=== PATIENT | female | born 1980 | race Caucasian/White ===

== ENCOUNTER 2016-08-09 00:59 | Emergency (ER) | payer OTHER ==
[2016-08-09] MEDS ORDERED: ONDANSETRON 4 MG/2 ML VIAL IVP STA (01:33)
[2016-08-09] MEDS ORDERED: SODIUM CHLORIDE 0.9% 1,000 ML IV STA (01:33)
[2016-08-09] MEDS ORDERED: HYDROmorphone 1 MG/ML 1 ML SYRINGE IVP STA ×2 (01:33→03:44)
--- NOTE | 2016-08-09 01:41 | ED ---
Abdominal Pain HPI - General Source: patient Mode of arrival: ambulatory Limitations: no limitations, language barrier - History of Present Illness Severity scale (1-10): 0 <Merritt Portillo - Last Filed: 08/09/16 03:52> <Donell Vasquez - Last Filed: 08/25/16 20:05> - General Chief Complaint: Abdominal Pain Stated Complaint: Abd Pain Time Seen by Provider: 08/09/16 01:27 - History of Present Illness Initial Comments: 36-year-old female patient presents to emergency department today for complaints of upper abdominal pain that radiates to her back. Patient states that she does chronically have abdominal pain, but it's been worse over the last 5 days. Patient states that she's been vomiting every day for the last 2 years but it is worse and more frequent, and she is unable to keep down any food or fluids. Patient also reports fevers daily for the last 4 years. Temperatures as high as 105. Patient states she's also had diarrhea for the last 2 days. She denies any urinary urgency, frequency, dysuria, or hematuria. She states she has noted some blood in her vomit. Vomit was examined at bedside no blood present. Patient denies any chest pain, back pain, or shortness of breath. (Merritt Portillo) - Related Data Previous Rx's Medication Instructions Recorded Ciprofloxacin HCl [Cipro] 500 mg PO Q12HR #6 tablet 03/17/14 Famotidine [Pepcid] 20 mg PO BID #30 tablet 03/17/14 Ondansetron Odt [Zofran Odt] 4 mg PO Q6HR PRN #20 tab 03/17/14 Omeprazole [PriLOSEC] 20 mg PO AC-BRKFST #1 cap 03/18/14 Sulfamethox-Tmp 400-80Mg [Bactrim 1 each PO Q12HR #1 tablet 03/18/14 SS 400-80 mg] Allergies Allergy/AdvReac Type Severity Reaction Status Date / Time house dust Allergy Itching Verified 08/09/16 01:06 Iodinated Contrast Media - Allergy Anaphylaxis Verified 08/09/16 01:06 Oral and [Iodinated Contrast Media - IV Dye] Review of Systems ROS Other: All systems not noted in ROS Statement are negative. <Merritt Portillo - Last Filed: 08/09/16 03:52> ROS Other: All systems not noted in ROS Statement are negative. <Donell Vasquez - Last Filed: 08/25/16 20:05> ROS Statement: Those systems with pertinent positive or pertinent negative responses have been documented in the HPI. Past Medical History Past Medical History: GI Bleed, Hypertension Additional Past Medical History / Comment(s): CARPAL TUNNEL History of Any Multi-Drug Resistant Organisms: None Reported Past Surgical History: Section Additional Past Surgical History / Comment(s): WISDOM TEETH EXTRACTION, D&C, 3 SECTIONS Additional Past Anesthesia/Blood Transfusion Reaction / Comment(s): PT STATES TAKES A WHILE TO WAKE UP Past Psychological History: Anxiety, Depression Smoking Status: Current every day smoker Past Alcohol Use History: Occasional Past Drug Use History: Marijuana - Past Family History Mother Additional Family Medical History / Comment(s): LUPUS <Merritt Portillo - Last Filed: 08/09/16 03:52> General Exam Limitations: no limitations, language barrier General appearance: alert, in distress, other (Pt sitting on the floor, rocking back and forth. ) Eye exam: Present: normal appearance, PERRL, EOMI. Absent: scleral icterus, conjunctival injection, periorbital swelling ENT exam: Present: normal exam, normal oropharynx, mucous membranes moist Neck exam: Present: normal inspection. Absent: tenderness, meningismus, lymphadenopathy Respiratory exam: Present: normal lung sounds bilaterally. Absent: respiratory distress, wheezes, rales, rhonchi, stridor Cardiovascular Exam: Present: regular rate, normal rhythm, normal heart sounds. Absent: systolic murmur, diastolic murmur, rubs, gallop, clicks GI/Abdominal exam: Present: soft, tenderness (Exquisite upper abdominal tenderness), normal bowel sounds. Absent: distended, guarding, rebound, rigid, organomegaly, mass, hernia Extremities exam: Present: normal inspection, full ROM, normal capillary refill. Absent: tenderness, pedal edema, joint swelling, calf tenderness Back exam: Present: normal inspection. Absent: CVA tenderness (R), CVA tenderness (L) Neurological exam: Present: alert, oriented X3, CN II-XII intact Psychiatric exam: Present: anxious Skin exam: Present: warm, dry, intact, normal color. 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 (Merritt Portillo) Medical Decision Making - Lab Data Result diagrams: 08/09/16 01:30 08/09/16 01:30 <Merritt Portillo - Last Filed: 08/09/16 03:52> - Lab Data Result diagrams: 08/09/16 01:30 08/09/16 01:30 <Donell Vasquez - Last Filed: 08/25/16 20:05> - Medical Decision Making Dr. Vasquez discuss case with [facility] excepts transfer for vascular surgery (Merritt Portillo) I saw this patient in conjunction with the physician educational/development assistant. I performed independent history and physical exam. Agree with case management. On the exam, agree with the physician educational/development assistant note. I do not hear a murmur, but there is definitely concern of possible vegetation given the patient's history. We did order a dose of vancomycin started stat. The patient does have some mild diffuse tenderness but no rebound or guarding. I discussed case with the vascular surgeon, Dr. Guerrero who states that patient definitely needs higher level of care than available at this facility. I discussed the findings with the patient and family and they requested to be transferred to [facility]. I discussed case with the transfer team at [facility], accepting transfer (Donell Vasquez) - Lab Data Lab Results 08/09/16 08/09/16 08/09/16 Range/Units 01:30 01:30 01:30 WBC 12.0 H (3.8-10.6) k/uL RBC 4.99 (3.80-5.40) m/uL Hgb 17.1 H (11.4-16.0) gm/dL Hct 51.7 H (34.0-46.0) % MCV 103.7 H (80.0-100.0) fL MCH 34.3 (25.0-35.0) pg MCHC 33.1 (31.0-37.0) g/dL RDW 17.9 H (11.5-15.5) % Plt Count 257 (150-450) k/uL Neutrophils % 72 % Lymphocytes % 15 % Monocytes % 5 % Eosinophils % 5 % Basophils % 1 % Neutrophils # 8.7 H (1.3-7.7) k/uL Lymphocytes # 1.8 (1.0-4.8) k/uL Monocytes # 0.6 (0-1.0) k/uL Eosinophils # 0.6 (0-0.7) k/uL Basophils # 0.1 (0-0.2) k/uL Anisocytosis Slight Macrocytosis Moderate Sodium 141 (137-145) mmol/L Potassium 3.9 (3.5-5.1) mmol/L Chloride 105 (98-107) mmol/L Carbon Dioxide 21 L (22-30) mmol/L Anion Gap 15 mmol/L BUN 7 (7-17) mg/dL Creatinine 0.50 L (0.52-1.04) mg/dL Est GFR (MDRD) Af Amer >60 (>60 ml/min/1.73 sqM) Est GFR (MDRD) Non-Af >60 (>60 ml/min/1.73 sqM) Glucose 102 H (74-99) mg/dL Plasma Lactic Acid Mateo 3.5 H* (0.7-2.0) mmol/L Calcium 8.7 (8.4-10.2) mg/dL Total Bilirubin 0.6 (0.2-1.3) mg/dL AST 42 H (14-36) U/L ALT 47 (9-52) U/L Alkaline Phosphatase 129 H (38-126) U/L Total Protein 7.6 (6.3-8.2) g/dL Albumin 3.7 (3.5-5.0) g/dL Amylase 53 (30-110) U/L Lipase 58 (23-300) U/L Urine Color Urine Appearance (Clear) Urine pH (5.0-8.0) Ur Specific [place] (1.001-1.035) Urine Protein (Negative) Urine Glucose (UA) (Negative) Urine Ketones (Negative) Urine Blood (Negative) Urine Nitrite (Negative) Urine Bilirubin (Negative) Urine Urobilinogen (<2.0) mg/dL Ur Leukocyte Esterase (Negative) Urine RBC (0-5) /hpf Urine WBC (0-5) /hpf Ur Squamous Epith Cells (0-4) /hpf Urine Mucus (None) /hpf Urine HCG, Qual (Not Detectd) Urine Opiates Screen (NotDetected) Ur Oxycodone Screen (NotDetected) Urine Methadone Screen (NotDetected) Ur Propoxyphene Screen (NotDetected) Ur Barbiturates Screen (NotDetected) U Tricyclic Antidepress (NotDetected) Ur Phencyclidine Scrn (NotDetected) Ur Amphetamines Screen (NotDetected) U Methamphetamines Scrn (NotDetected) U Benzodiazepines Scrn (NotDetected) Urine Cocaine Screen (NotDetected) U Marijuana (THC) Screen (NotDetected) 08/09/16 08/09/16 Range/Units 03:23 03:23 WBC (3.8-10.6) k/uL RBC (3.80-5.40) m/uL Hgb (11.4-16.0) gm/dL Hct (34.0-46.0) % MCV (80.0-100.0) fL MCH (25.0-35.0) pg MCHC (31.0-37.0) g/dL RDW (11.5-15.5) % Plt Count (150-450) k/uL Neutrophils % % Lymphocytes % % Monocytes % % Eosinophils % % Basophils % % Neutrophils # (1.3-7.7) k/uL Lymphocytes # (1.0-4.8) k/uL Monocytes # (0-1.0) k/uL Eosinophils # (0-0.7) k/uL Basophils # (0-0.2) k/uL Anisocytosis Macrocytosis Sodium (137-145) mmol/L Potassium (3.5-5.1) mmol/L Chloride (98-107) mmol/L Carbon Dioxide (22-30) mmol/L Anion Gap mmol/L BUN (7-17) mg/dL Creatinine (0.52-1.04) mg/dL Est GFR (MDRD) Af Amer (>60 ml/min/1.73 sqM) Est GFR (MDRD) Non-Af (>60 ml/min/1.73 sqM) Glucose (74-99) mg/dL Plasma Lactic Acid Mateo (0.7-2.0) mmol/L Calcium (8.4-10.2) mg/dL Total Bilirubin (0.2-1.3) mg/dL AST (14-36) U/L ALT (9-52) U/L Alkaline Phosphatase (38-126) U/L Total Protein (6.3-8.2) g/dL Albumin (3.5-5.0) g/dL Amylase (30-110) U/L Lipase (23-300) U/L Urine Color Yellow Urine Appearance Clear (Clear) Urine pH 6.5 (5.0-8.0) Ur Specific [place] 1.048 H (1.001-1.035) Urine Protein Trace H (Negative) Urine Glucose (UA) Negative (Negative) Urine Ketones Negative (Negative) Urine Blood Trace H (Negative) Urine Nitrite Negative (Negative) Urine Bilirubin Negative (Negative) Urine Urobilinogen <2.0 (<2.0) mg/dL Ur Leukocyte Esterase Negative (Negative) Urine RBC 2 (0-5) /hpf Urine WBC 1 (0-5) /hpf Ur Squamous Epith Cells 3 (0-4) /hpf Urine Mucus Rare H (None) /hpf Urine HCG, Qual Not Detected (Not Detectd) Urine Opiates Screen Detected H (NotDetected) Ur Oxycodone Screen Not Detected (NotDetected) Urine Methadone Screen Not Detected (NotDetected) Ur Propoxyphene Screen Not Detected (NotDetected) Ur Barbiturates Screen Not Detected (NotDetected) U Tricyclic Antidepress Not Detected (NotDetected) Ur Phencyclidine Scrn Not Detected (NotDetected) Ur Amphetamines Screen Not Detected (NotDetected) U Methamphetamines Scrn Not Detected (NotDetected) U Benzodiazepines Scrn Not Detected (NotDetected) Urine Cocaine Screen Not Detected (NotDetected) U Marijuana (THC) Screen Detected H (NotDetected) 08/09/16 03:37 EKG performed at 3:33 normal sinus rhythm with a rate of 69, ME 134, QRS duration 80, QT/QTC 444/475 (Merritt Portillo) Disposition - Out of Hospital Transfer - Req. Specs Out of Hospital Transfer - Requested Specifics: Other Emergency Center ([facility]) <Merritt Portillo - Last Filed: 08/09/16 03:52> - Out of Hospital Transfer - Req. 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
[2016-08-09 01:49] LABS: Anisocytosis Slight; Basophils # (A) 0.1 k/uL (0-0.2); Basophils % (A) 1 %; CH 33.6; CHCM 32.4; Eosinophils # (A) 0.6 k/uL (0-0.7); Eosinophils % (A) 5 %; HCT 51.7 % (34.0-46.0); HDW 2.66; HGB 17.1 gm/dL (11.4-16.0); Luc # (Auto) 0.21; Luc % (Auto) 2; Lymphocytes # (A) 1.8 k/uL (1.0-4.8); Lymphocytes % (A) 15 %; MCH 34.3 pg (25.0-35.0); MCHC 33.1 g/dL (31.0-37.0); MCV 103.7 fL (80.0-100.0); Macrocytosis Moderate; Monocytes # (A) 0.6 k/uL (0-1.0); Monocytes % (A) 5 %; Neutrophils # (A) 8.7 k/uL (1.3-7.7); Neutrophils % (A) 72 %; RBC 4.99 m/uL (3.80-5.40); RDW 17.9 % (11.5-15.5)
[2016-08-09 02:01] LABS: ALT 47 U/L (9-52); AST 42 U/L (14-36); Alkaline Phosphatase 129 U/L (38-126); Amylase 53 U/L (30-110); Anion Gap 15 mmol/L; Blood Urea Nitrogen 7 mg/dL (7-17); Calcium 8.7 mg/dL (8.4-10.2); Carbon Dioxide 21 mmol/L (22-30); Chloride 105 mmol/L (98-107); Glucose 102 mg/dL (74-99); Non-African American GFR(MDRD) >60 (>60 ml/min/1.73 sqM); Potassium 3.9 mmol/L (3.5-5.1); Sodium 141 mmol/L (137-145); Total Bilirubin 0.6 mg/dL (0.2-1.3); Total Protein 7.6 g/dL (6.3-8.2)
[2016-08-09] MEDS ORDERED: diphenhydrAMINE 50 MG/ML 1 ML VIAL IVP STA (02:02)
[2016-08-09] MEDS ORDERED: FAMOTIDINE 20 MG/2 ML VIAL IV STA (02:02)
[2016-08-09] MEDS ORDERED: methylPREDNISolone SOD SUCCI 125 MG/2 ML VIAL IV STA (02:02)
[2016-08-09] MEDS ORDERED: RX INFO: IV CONTRAST WAS GIVEN 1 EACH MISC MISCELLANE PRN (02:03)
[2016-08-09 02:32] VITALS: RESP 18
[2016-08-09] MEDS ORDERED: SODIUM CHLORIDE 0.9% 1,000 ML IV ONE (02:38)
--- NOTE | 2016-08-09 03:18 | CT ---
EXAM: CT Abdomen and Pelvis With Intravenous Contrast. CLINICAL HISTORY: Severe abd pain all over abd area, [id number]/100ml, no previous, DLP: 509. 20 TECHNIQUE: Axial computed tomography images of the abdomen and pelvis with intravenous contrast. CTDI is 7.00 mGy and DLP is 509.0 mGy-cm This CT exam was performed using one or more of the following dose reduction techniques: automated exposure control, adjustment of the mA and/or kV according to patient size, and/or use of iterative reconstruction technique. Coronal and sagittal reformatted images were created and reviewed. COMPARISON: No relevant prior studies available. FINDINGS: Lower thorax: No acute findings. ABDOMEN: Liver: Diffuse fatty enlarged liver, correlate with LFTs. Gallbladder and bile ducts: Unremarkable. No calcified stones. No ductal dilation. Pancreas: Unremarkable. No mass. No ductal dilation. Spleen: 1.6 cm peripheral splenic low-density lesion. Adrenals: Unremarkable. No mass. Kidneys and ureters: Unremarkable. No solid mass. No hydronephrosis. Stomach and bowel: Diffuse thickening of the colon consistent with colitis. Appendix: Normal appendix. PELVIS: Bladder: Unremarkable. No mass. Reproductive: Uterus and adnexa unremarkable. ABDOMEN and PELVIS: Intraperitoneal space: Unremarkable. No free air. No significant fluid collection. Bones/joints: No acute fracture. No dislocation. Soft tissues: Unremarkable. Vasculature: Thrombus within the SMA, spanning 2.5 cm in length 3.5 cm from origin , with high-grade stenosis. Lymph nodes: Unremarkable. No enlarged lymph nodes. IMPRESSION: 1. Diffuse thickening of the colon consistent with colitis. No bowel obstruction. No free air, free fluid, or abscess. 2. Diffuse fatty enlarged liver, correlate with LFTs. 3. Thrombus within the SMA, spanning 2.5 cm in length 3.5 cm from origin , with high-grade stenosis. [employer] 08/09/16 03:31 Verify Receipt Verified receipt with Safety Counselorkeith Strickland in the ER for PATEL Stearns on 08/09 03:31 (-04:00)
[2016-08-09 03:38] LABS: Appearance,Urine Clear (Clear); Bilirubin,Urine Negative (Negative); Glucose,Urine (UA) Negative (Negative); Ketones,Urine Negative (Negative); Leukocyte Esterase,Urine Negative (Negative); Mucus,Urine Rare /hpf; Nitrite,Urine Negative (Negative); PH, Urine 6.5 (5.0-8.0); Particle Count 3176; Protein,Urine Trace (Negative); RBC,Urine 2 /hpf (0-5); Squamous Epithelial Cell,Urine 3 /hpf (0-4); UA Billing (MACRO vs. MICRO) MICRO; Urobilinogen,Urine <2.0 mg/dL (<2.0); WBC,Urine 1 /hpf (0-5)
[2016-08-09 03:39] LABS: Specific Gravity,Urine 1.048 (1.001-1.035)
[2016-08-09] MEDS ORDERED: PIPERACILLIN-TAZOBACTAM 3.375 GM in DEXTROSE/WATER 1 50ML.BAG IVPB STA (03:43)
[2016-08-09] MEDS ORDERED: IV VANCOMYCIN PER PHARMACY 1 EACH MISC MISCELLANE PRN (03:49)
[2016-08-09 04:00] VITALS: BP 146/103; PULSE 72; TEMP 98
[2016-08-09] MEDS ORDERED: VANCOMYCIN 1,000 MG in SODIUM CHLORIDE 0.9% 250 ML IVPB STA (04:00)
== END 2016-08-09 04:27 | disposition short-term general hospital (02) ==
LOC: EC 00:59
DX: K55.069 Acute infarction of intestine, part and extent unspecified (principal); K52.9 Noninfective gastroenteritis and colitis, unspecified; F19.10 Other psychoactive substance abuse, uncomplicated; F17.200 Nicotine dependence, unspecified, uncomplicated; Z91.09 Other allergy status, other than to drugs and biological substances; Z91.041 Radiographic dye allergy status
CPT/HCPCS: 99285; 96374; 96375 ×4; 96376; 96361 ×2; 36415; 93005; 80053; 82150; 83605; 83690; 85025; 81001; 81025; 87040; 80306; 74177; J3370; J1200; J2930; J2405; J1170; Q9967

== ENCOUNTER 2016-11-05 22:36 | Inpatient (IN) | payer MEDICARE, OTHER ==
[2016-11-06] MEDS ORDERED: HEPARIN SODIUM,PORCINE/D5W PMX 25,000 UNIT/500 ML BAG IV ONE (02:53)
[2016-11-06] MEDS ORDERED: HEPARIN SODIUM,PORCINE 5,000 UNIT/ML 1 ML VIAL ONE (02:53)
[2016-11-06] MEDS ORDERED: POTASSIUM CHLORIDE ER 20 MEQ TAB.ER PO ONE (02:53)
[2016-11-06] MEDS ORDERED: HYDROcodone/APAP 10-325MG 1 EACH TAB ONE (02:53)
[2016-11-06 04:09] VITALS: BMI 21.7
[2016-11-06] MEDS ORDERED: HEPARIN SODIUM,PORCINE 5,000 UNIT/ML 1 ML VIAL IV PRN (04:48)
[2016-11-06] MEDS: MORPHINE SULFATE 4 MG/ML SYRINGE IVP PRN ×3 (05:22→14:21)
[2016-11-06 05:33] LABS: ALT 38 U/L (9-52); AST 23 U/L (14-36); Alkaline Phosphatase 155 U/L (38-126); Anion Gap 15 mmol/L; Anisocytosis Moderate; Basophils # (A) 0.1 k/uL (0-0.2); Basophils % (A) 1 %; Blood Urea Nitrogen 2 mg/dL (7-17); CH 32.7; CHCM 34.2; Calcium 8.7 mg/dL (8.4-10.2); Carbon Dioxide 25 mmol/L (22-30); Chloride 98 mmol/L (98-107); Eosinophils # (A) 0.3 k/uL (0-0.7); Eosinophils % (A) 2 %; Glucose 97 mg/dL (74-99); HCT 38.6 % (34.0-46.0); HDW 2.73; HGB 13.3 gm/dL (11.4-16.0); Luc # (Auto) 0.11; Luc % (Auto) 1; Lymphocytes # (A) 2.3 k/uL (1.0-4.8); Lymphocytes % (A) 16 %; MCH 32.9 pg (25.0-35.0); MCHC 34.4 g/dL (31.0-37.0); MCV 95.7 fL (80.0-100.0); Macrocytosis Moderate; Mean Platelet Volume 7.2; Monocytes # (A) 0.7 k/uL (0-1.0); Monocytes % (A) 5 %; Neutrophils # (A) 10.3 k/uL (1.3-7.7); Neutrophils % (A) 75 %; Non-African American GFR(MDRD) >60 (>60 ml/min/1.73 sqM); RBC 4.03 m/uL (3.80-5.40); RDW 21.7 % (11.5-15.5); Sodium 138 mmol/L (137-145); Total Bilirubin 0.5 mg/dL (0.2-1.3); Total Protein 6.6 g/dL (6.3-8.2); WBC 13.7 k/uL (3.8-10.6); WBC (Perox) 13.22
[2016-11-06 05:34] LABS: Potassium 2.9 mmol/L (3.5-5.1)
[2016-11-06 05:43] LABS: Partial Thromboplastin Time 26.2 sec (22.0-30.0); Prothrombin Time 10.5 sec (9.0-12.0)
[2016-11-06] MEDS: SODIUM CHLORIDE 0.9% 1,000 ML IV SCH (06:17)
[2016-11-06] MEDS: HEPARIN SODIUM,PORCINE/D5W PMX 25,000 UNIT in DEXTROSE/WATER 1 500ML.BAG IV SCH ×2 (06:21→20:40)
--- NOTE | 2016-11-06 08:18 | US ---
EXAMINATION TYPE: US venous doppler duplex LE RT DATE OF EXAM: 11/06/2016 6:44 AM COMPARISON: NONE CLINICAL HISTORY: PAIN. SIDE PERFORMED: Right TECHNIQUE: The lower extremity deep venous system is examined utilizing real time linear array sonog basilio with graded compression, doppler sonography and color-flow sonography. VESSELS IMAGED: External Iliac Vein (EIV) Common Femoral Vein Deep Femoral Vein Greater Saphenous Vein * Femoral Vein Popliteal Vein Small Saphenous Vein * Proximal Calf Veins (* superficial vessels) Right Leg: Extensive hyperechoic material begins in visualized portion of distal external iliac vein extending through common femoral vein into deep and superficial femoral veins with absent color flow and noncompressibility. There is absent color flow and compressibility extending into popliteal vein and right-sided calf veins. IMPRESSION: Long segment acute DVT is present. A preliminary report for this study was provided by [facility].
[2016-11-06] MEDS: NICOTINE 14MG/24HR PATCH TRANSDERM SCH (11:44)
[2016-11-06 12:54] LABS: ALT 24 U/L (9-52); AST 27 U/L (14-36); Alkaline Phosphatase 119 U/L (38-126); Anion Gap 9 mmol/L; Blood Urea Nitrogen 4 mg/dL (7-17); Calcium 7.7 mg/dL (8.4-10.2); Carbon Dioxide 25 mmol/L (22-30); Chloride 96 mmol/L (98-107); Glucose 102 mg/dL (74-99); Magnesium 1.6 mg/dL (1.6-2.3); Non-African American GFR(MDRD) >60 (>60 ml/min/1.73 sqM); Potassium 3.3 mmol/L (3.5-5.1); Sodium 130 mmol/L (137-145); Total Bilirubin 0.6 mg/dL (0.2-1.3); Total Protein 5.7 g/dL (6.3-8.2)
[2016-11-06] MEDS ORDERED: traMADol 50 MG TAB PO PRN (13:00)
[2016-11-06 14:51] LABS: Appearance,Urine Cloudy (Clear); Bacteria,Urine Moderate /hpf; Bilirubin,Urine Negative (Negative); Glucose,Urine (UA) Negative (Negative); Ketones,Urine Negative (Negative); Leukocyte Esterase,Urine Large (Negative); Mucus,Urine Occasional /hpf; Nitrite,Urine Positive (Negative); Particle Count 87016; Protein,Urine 1+ (Negative); Specific Gravity,Urine 1.012 (1.001-1.035); Squamous Epithelial Cell,Urine 1 /hpf (0-4); UA Billing (MACRO vs. MICRO) MICRO; WBC,Urine >182 /hpf (0-5)
[2016-11-06] MEDS ORDERED: Potassium Replacement Protocol 1 EACH MISC MISCELLANE PRN (15:42)
[2016-11-06] MEDS ORDERED: Magnesium Replacement Protocol 1 EACH MISC MISCELLANE PRN (15:43)
--- NOTE | 2016-11-06 15:48 | P.HPIM ---
History of Present Illness H&P Date: 11/06/16 Chief Complaint: leg pain this is a 36 y/o wf pt of Dr Junior. SHe is non compliant and has not taken her coumadin in 3 months. SHe has h/o clotting disorder f/u by Rashid William. She c /o several day increasd right leg pain. She came to the ER and a RLE DVT was found. No information as to the chronicity of this. She indicates she has them in her Left leg.SHe is now admitted for this. Review of Systems All systems: negative Past Medical History Past Medical History: Asthma, Deep Vein Thrombosis (DVT), GI Bleed, Hypertension Additional Past Medical History / Comment(s): CARPAL TUNNEL. CLOTTING DISORDER History of Any Multi-Drug Resistant Organisms: None Reported Past Surgical History: Section Additional Past Surgical History / Comment(s): WISDOM TEETH EXTRACTION, D&C, 3 SECTIONS, TUBES TIED, BLOOD CLOT REMOVED FROM ABDOMEN Additional Past Anesthesia/Blood Transfusion Reaction / Comment(s): PT STATES TAKES A WHILE TO WAKE UP Past Psychological History: Anxiety, Depression, Panic Disorder, PTSD Additional Psychological History / Comment(s): insomnia Smoking Status: Current every day smoker Past Alcohol Use History: Occasional Additional Past Alcohol Use History / Comment(s): in the past few days, she states she has had three shots of liquor per day, but she does not normally drink Past Drug Use History: Opiates Additional Drug Use History / Comment(s): patient states she takes whatever pain pill she can get - Past Family History Mother Additional Family Medical History / Comment(s): LUPUS Medications and Allergies Home Medications Medication Instructions Recorded Confirmed Type No Known Home Medications [No 11/06/16 11/06/16 History Known Home Medications] Allergies Allergy/AdvReac Type Severity Reaction Status Date / Time house dust Allergy Itching Verified 11/06/16 08:57 Iodinated Contrast Media - Allergy Anaphylaxis Verified 11/06/16 08:57 Oral and [Iodinated Contrast Media - IV Dye] Physical Exam Vitals: Vital Signs Temp Pulse Resp BP BP Pulse Ox 11/06/16 14:57 99.2 F 96 20 104/67 98 11/06/16 07:00 98.8 F 103 H 18 106/66 98 11/06/16 04:01 98.5 F 104 H 18 122/69 97 Intake and Output 11/06/16 11/06/16 11/06/16 06:59 14:59 22:59 Intake Total 993.22 Balance 993.22 Intake: Intake, IV Titration 99.22 Amount Heparin Sodium,Porcine/ 99.22 D5w Pmx 25,000 unit In Dextrose/Water 1 500ml. bag @ 22.1 UNITS/KG/HR 27 .06 mls/hr IV .[id number] [facility] Rx#:[id number] Oral 894 Other: Voiding Method Toilet # Voids 0 2 Weight 61.235 kg - Constitutional General appearance: average body habitus - EENT Eyes: EOMI, PERRLA - Neck Neck: no lymphadenopathy, no thyromegaly - Respiratory Respiratory: bilateral: CTA - Cardiovascular Rhythm: regular Heart sounds: normal: S1, S2 Abnormal Heart Sounds: no systolic murmur - Gastrointestinal General gastrointestinal: normal bowel sounds pain to palplation of right leg Results CBC & Chem 7: 11/06/16 01:25 11/06/16 12:02 Labs: Abnormal Lab Results - Last 24 Hours (Table) 11/06/16 11/06/16 11/06/16 Range/Units 01:25 01:25 08:45 WBC 13.7 H (3.8-10.6) k/uL RDW 21.7 H (11.5-15.5) % Neutrophils # 10.3 H (1.3-7.7) k/uL APTT 36.1 H (22.0-30.0) sec Sodium (137-145) mmol/L Potassium 2.9 L* (3.5-5.1) mmol/L Chloride (98-107) mmol/L BUN 2 L (7-17) mg/dL Creatinine 0.40 L (0.52-1.04) mg/dL Glucose (74-99) mg/dL Calcium (8.4-10.2) mg/dL Alkaline Phosphatase 155 H (38-126) U/L Total Protein (6.3-8.2) g/dL Albumin 3.2 L (3.5-5.0) g/dL Urine Appearance (Clear) Urine Protein (Negative) Urine Nitrite (Negative) Ur Leukocyte Esterase (Negative) Urine WBC (0-5) /hpf Urine Bacteria (None) /hpf Urine Mucus (None) /hpf 11/06/16 11/06/16 Range/Units 12:02 13:20 WBC (3.8-10.6) k/uL RDW (11.5-15.5) % Neutrophils # (1.3-7.7) k/uL APTT (22.0-30.0) sec Sodium 130 L (137-145) mmol/L Potassium 3.3 L (3.5-5.1) mmol/L Chloride 96 L (98-107) mmol/L BUN 4 L (7-17) mg/dL Creatinine 0.41 L (0.52-1.04) mg/dL Glucose 102 H (74-99) mg/dL Calcium 7.7 L (8.4-10.2) mg/dL Alkaline Phosphatase (38-126) U/L Total Protein 5.7 L (6.3-8.2) g/dL Albumin 2.4 L (3.5-5.0) g/dL Urine Appearance Cloudy H (Clear) Urine Protein 1+ H (Negative) Urine Nitrite Positive H (Negative) Ur Leukocyte Esterase Large H (Negative) Urine WBC >182 H (0-5) /hpf Urine Bacteria Moderate H (None) /hpf Urine Mucus Occasional H (None) /hpf Venous US: report reviewed Thrombosis Risk Factor Assmnt - DVT/VTE Prophylaxis DVT/VTE Prophylaxis: Pharmacologic Prophylaxis ordered - Choose All That Apply Any of the Below Risk Factors Present?: Yes Each Factor Represents 1 point: Swollen legs (current) Other Risk Factors: Yes Each Risk Factor Represents 3 Points: History of DVT/PE Thrombosis Risk Factor Assessment Total Risk Factor Score: 4 Thrombosis Risk Factor Assessment Level: Moderate Risk Assessment and Plan Plan: DVT RLE: heparin drip, consult hem/onc for a local doc for her, investigate xarelto. other novel anticoagulant unspecified clotting disorder: as above, obtain old records tobaccoism: nicotice patch suspect narcotic abuse/dependence: d/ morphine, tramadol q6hr prn, counseling recommended Biploar suspect I will await on HEm/onc consult and reevaluate her in the next 24hrs.
[2016-11-06] MEDS: MAGNESIUM SULFATE-D5W PMX 1 GM in DEXTROSE/WATER 1 100ML.BAG IVPB SCH ×2 (16:13→17:22)
[2016-11-06] MEDS: POTASSIUM CHLORIDE 10 MEQ, LIDOCAINE 2% INJ 10 MG in SODIUM CHLORIDE 0.9% 100 ML IV SCH ×2 (18:46→19:54)
[2016-11-06] MEDS: traMADol 50 MG TAB PO PRN (18:51)
[2016-11-07] MEDS: SODIUM CHLORIDE 0.9% 1,000 ML IV SCH ×2 (01:19→20:54)
[2016-11-07] MEDS: traMADol 50 MG TAB PO PRN ×2 (01:45→09:15)
[2016-11-07] MEDS ORDERED: RX INFO: IV CONTRAST WAS GIVEN 1 EACH MISC MISCELLANE PRN (08:41)
[2016-11-07 08:46] LABS: Anisocytosis Moderate; Basophils # (A) 0.1 k/uL (0-0.2); Basophils % (A) 1 %; CH 31.4; CHCM 32.1; Eosinophils # (A) 0.4 k/uL (0-0.7); Eosinophils % (A) 4 %; HCT 32.7 % (34.0-46.0); HDW 2.67; HGB 10.9 gm/dL (11.4-16.0); Luc # (Auto) 0.08; Luc % (Auto) 1; Lymphocytes % (A) 18 %; MCH 32.6 pg (25.0-35.0); MCHC 33.3 g/dL (31.0-37.0); MCV 97.9 fL (80.0-100.0); Macrocytosis Moderate; Mean Platelet Volume 7.7; Monocytes # (A) 0.6 k/uL (0-1.0); Monocytes % (A) 5 %; Neutrophils # (A) 7.9 k/uL (1.3-7.7); Neutrophils % (A) 72 %; RBC 3.34 m/uL (3.80-5.40); RDW 21.2 % (11.5-15.5); WBC (Perox) 10.68
[2016-11-07] MEDS: FAMOTIDINE 20 MG TAB PO SCH (09:06)
[2016-11-07] MEDS: NICOTINE 14MG/24HR PATCH TRANSDERM SCH (09:06)
[2016-11-07 09:13] LABS: Anion Gap 7 mmol/L; Blood Urea Nitrogen 3 mg/dL (7-17); Calcium 7.7 mg/dL (8.4-10.2); Carbon Dioxide 25 mmol/L (22-30); Chloride 101 mmol/L (98-107); Glucose 85 mg/dL (74-99); Non-African American GFR(MDRD) >60 (>60 ml/min/1.73 sqM); Potassium 3.7 mmol/L (3.5-5.1); Sodium 133 mmol/L (137-145)
[2016-11-07] MEDS ORDERED: Potassium Replacement Protocol 1 EACH MISC MISCELLANE PRN (10:11)
[2016-11-07] MEDS: POTASSIUM CHLORIDE 10 MEQ, LIDOCAINE 2% INJ 10 MG in SODIUM CHLORIDE 0.9% 100 ML IV SCH ×2 (10:39→12:05)
[2016-11-07] MEDS: HYDROcodone/APAP 7.5-325MG 1 EACH TAB PO PRN ×3 (10:40→23:33)
[2016-11-07] MEDS: RIVAROXABAN 15 MG TAB PO SCH ×2 (10:40→16:41)
--- NOTE | 2016-11-07 11:05 | US ---
EXAMINATION TYPE: US venous doppler duplex LE LT DATE OF EXAM: 11/07/2016 9:44 AM COMPARISON: Right leg 11/06/2016 CLINICAL HISTORY: 36-year-old female h/o DVT. Currently has right leg DVT, assess left leg today, no swelling or pain in left leg SIDE PERFORMED: Left TECHNIQUE: The lower extremity deep venous system is examined utilizing real time linear array sonog basilio with graded compression, doppler sonography and color-flow sonography. FINDINGS: VESSELS IMAGED: External Iliac Vein (EIV) Common Femoral Vein Deep Femoral Vein Greater Saphenous Vein * Femoral Vein Popliteal Vein Small Saphenous Vein * Proximal Calf Veins Posterior tibial veins (* superficial vessels) Left Leg: Appears negative for DVT IMPRESSION: No evidence for DVT within the left lower extremity.
--- NOTE | 2016-11-07 13:35 | P.PN ---
Subjective This 36-year-old white female admitted one day ago for right lower extremity DVT. She has history of unspecified clotting disorder. She been worked up at [facility] and treated for her DVTs. She was placed on Coumadin. She's been noncompliant not taking medications several months. She is admitted placed on heparin with a positive right lower extremity DVT. 11/07/2016: Planing of pain in that the Ultram isn't helping. Hematology is seen her, the doctor dictation is pending. She is scheduled for a left lower extremity ultrasound and a CT chest. Currently she denies any shortness of breath, chest pain, chest pressure. She complains of right leg pain. She also complains of mild abdominal pain, palpitation. Objective - Vital Signs Vital signs: Vital Signs Temp 98.2 F 11/07/16 07:00 Pulse 81 11/07/16 07:00 Resp 16 11/07/16 07:00 BP 99/65 11/07/16 07:00 Pulse Ox 98 11/07/16 07:00 Intake & Output 11/06/16 11/07/16 11/07/16 18:59 06:59 18:59 Intake Total 1229.191 304.403 755.902 Balance 1229.191 304.403 755.902 Intake: Intake, IV Titration 335.191 304.403 397.902 Amount Heparin Sodium,Porcine/ 335.191 104.403 397.902 D5w Pmx 25,000 unit In Dextrose/Water 1 500ml. bag @ 22.1 UNITS/KG/HR 27 .06 mls/hr IV .[id number] OJ Rx#:[id number] Potassium Chloride 10 meq 100 Lidocaine 2% Inj 10 mg In Sodium Chloride 0.9% 100 ml @ 100 mls/hr IV Q1HR OJ Rx#:[id number] cefTRIAXone 1,000 mg In 100 Sodium Chloride 0.9% 50 ml @ 100 mls/hr IVPB ONCE STA Rx#:[id number] Oral 894 358 Other: Voiding Method Toilet Bedside Commode Bedside Commode # Voids 1 0 - Exam General: The patient is awake and alert, in no distress, Neck: The neck is supple, there is no thyromegaly, lymphadenopathy, tenderness or JVD. Cardiovascular: S1S2 is normal, There is a regular rate and rhythm. No murmur, rub or gallop is appreciated. Respiratory: Lungs are clear to auscultation bilaterally, respirations are non -labored, breath sounds are equal. Gastrointestinal: Soft, non-distended, mild tenderness throughout abdomen without masses or organomegaly noted. There is no rebound or guarding present. Bowel sounds are unremarkable. Musculoskeletal: Normal ROM, s, There is no pedal edema. There is no cords were appreciated. Tenderness to palpation of the the right lower extremity. Neurological: CN II-XII intact, there are no obvious motor or sensory deficits. Coordination appears grossly intact. Speech is normal. Skin: Skin is warm and dry and no rashes or lesions are noted. - Labs CBC & Chem 7: 11/07/16 08:02 11/07/16 08:02 Labs: Abnormal Lab Results - Last 24 Hours (Table) 11/06/16 11/06/16 11/07/16 Range/Units 13:20 16:16 08:02 WBC 11.0 H (3.8-10.6) k/uL RBC 3.34 L (3.80-5.40) m/uL Hgb 10.9 L (11.4-16.0) gm/dL Hct 32.7 L (34.0-46.0) % RDW 21.2 H (11.5-15.5) % Neutrophils # 7.9 H (1.3-7.7) k/uL APTT 56.4 H (22.0-30.0) sec Sodium (137-145) mmol/L BUN (7-17) mg/dL Creatinine (0.52-1.04) mg/dL Calcium (8.4-10.2) mg/dL Urine Appearance Cloudy H (Clear) Urine Protein 1+ H (Negative) Urine Nitrite Positive H (Negative) Ur Leukocyte Esterase Large H (Negative) Urine WBC >182 H (0-5) /hpf Urine Bacteria Moderate H (None) /hpf Urine Mucus Occasional H (None) /hpf 11/07/16 11/07/16 Range/Units 08:02 08:02 WBC (3.8-10.6) k/uL RBC (3.80-5.40) m/uL Hgb (11.4-16.0) gm/dL Hct (34.0-46.0) % RDW (11.5-15.5) % Neutrophils # (1.3-7.7) k/uL APTT 67.2 H (22.0-30.0) sec Sodium 133 L (137-145) mmol/L BUN 3 L (7-17) mg/dL Creatinine 0.45 L (0.52-1.04) mg/dL Calcium 7.7 L (8.4-10.2) mg/dL Urine Appearance (Clear) Urine Protein (Negative) Urine Nitrite (Negative) Ur Leukocyte Esterase (Negative) Urine WBC (0-5) /hpf Urine Bacteria (None) /hpf Urine Mucus (None) /hpf Microbiology - Last 24 Hours (Table) 11/06/16 13:20 Urine Culture - Preliminary Urine,Voided Assessment and Plan Plan: DVT RLE: None on the heparin drip no greater than 24 hours, I will start her on Xarelto. We'll await further recommendations from hematology oncology. I don't believe she'll be compliant with Coumadin and with blood draws for PT INR. We' ll investigate coverage for Xarelto, but we should have samples of this or another novel anticoagulant. Compliance was reinforced to her. unspecified clotting disorder: Hematology consultation. tobaccoism: nicotice patch, tobaccoism cessation was discussed with her at length. suspect narcotic abuse/dependence: We'll monitor very closely Lower extremity pain: I will discontinue the tramadol as it is not helping, we will give her [place], 7.5/325, #1 tablet every 6 hours as needed Biploar suspect Noncompliance waiting on hematology commendations n, and the CT chest ordered. Reevaluate in the next 24 hours. Compliance was reinforced to this patient
[2016-11-07] MEDS ORDERED: predniSONE 50 MG TAB PO ONE (19:00)
--- NOTE | 2016-11-07 21:17 | P.CONS ---
History of Present Illness - Reason for Consult Consult date: 11/07/16 RLE DVT - History of Present Illness The patient is a 36-year-old lady with multiple medical issues. She had presented in 08/14, with abdominal pain, nausea and vomiting. 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. She had developed ischemic bowel, and underwent laparotomy with partial bowel resection. She states that she was diagnosed with left lower extremity DVT during that admission. Per the patient, she had a hypercoagulable workup, and was told lead she had a clotting disorder. However she was unable to provide any further details. She was discharged on Coumadin, but states that she did not have any monitoring, as she could not get back to [facility]. She also claims that she was not for how long she had to be on anticoagulation. She stopped taking the medication herself more than a month ago. She came into the emergency room, because of increasing pain as well as swelling in the right lower extremity over the last 1-2 days. As found to have an extensive DVT extending from the right iliac down to the right popliteal vein. She was admitted and started on IV heparin. The consult was placed for further evaluation and recommendations. The patient denied any other history of venous or arterial thrombotic embolism. She stated that her mother, as well as an uncle, and grandmother on her mother's side had a history of clots. Review of Systems Constitutional: Reports malaise Eyes: denies blurred vision, denies pain Ears: deny: decreased hearing, ear discharge, earache, tinnitus Ears, nose, mouth and throat: Denies headache, Denies sore throat Cardiovascular: Denies chest pain, Denies shortness of breath Respiratory: Denies cough Gastrointestinal: Reports as per HPI, Reports abdominal pain Genitourinary: Denies dysuria, Denies hematuria Menstruation: Reports period normal Musculoskeletal: Reports as per HPI, Reports shooting leg pain Integumentary: Denies pruritus, Denies rash Neurological: Denies numbness, Denies weakness Psychiatric: Reports irritability Endocrine: Reports fatigue, Denies weight change Hematologic/Lymphatic: Reports as per HPI, Reports thrombophilia Past Medical History Past Medical History: Asthma, Deep Vein Thrombosis (DVT), GI Bleed, Hypertension Additional Past Medical History / Comment(s): CARPAL TUNNEL. CLOTTING DISORDER History of Any Multi-Drug Resistant Organisms: None Reported Past Surgical History: Section Additional Past Surgical History / Comment(s): WISDOM TEETH EXTRACTION, D&C, 3 SECTIONS, TUBES TIED, BLOOD CLOT REMOVED FROM ABDOMEN Additional Past Anesthesia/Blood Transfusion Reaction / Comm: PT STATES TAKES A WHILE TO WAKE UP Past Psychological History: Anxiety, Depression, Panic Disorder, PTSD Additional Psychological History / Comment(s): insomnia Smoking Status: Current every day smoker Past Alcohol Use History: Occasional Additional Past Alcohol Use History / Comment(s): in the past few days, she states she has had three shots of liquor per day, but she does not normally drink Past Drug Use History: Opiates Additional Drug Use History / Comment(s): patient states she takes whatever pain pill she can get - Past Family History Mother Additional Family Medical History / Comment(s): LUPUS Medications and Allergies Home Medications Medication Instructions Recorded Confirmed Type No Known Home Medications [No 11/06/16 11/06/16 History Known Home Medications] Allergies Allergy/AdvReac Type Severity Reaction Status Date / Time house dust Allergy Itching Verified 11/06/16 08:57 Iodinated Contrast Media - Allergy Anaphylaxis Verified 11/06/16 08:57 Oral and [Iodinated Contrast Media - IV Dye] Physical Exam Vitals: Vital Signs Temp Pulse Resp BP Pulse Ox 11/07/16 15:00 97.1 F L 78 16 96/67 99 11/07/16 07:00 98.2 F 81 16 99/65 98 11/07/16 00:00 20 11/06/16 23:00 98.3 F 88 20 103/72 97 Intake and Output 11/07/16 11/07/16 11/07/16 06:59 14:59 22:59 Intake Total 200 873.902 Balance 200 873.902 Intake: Intake, IV Titration 200 397.902 Amount Heparin Sodium,Porcine/ 397.902 D5w Pmx 25,000 unit In Dextrose/Water 1 500ml. bag @ 22.1 UNITS/KG/HR 27 .06 mls/hr IV .[id number] OJ Rx#:[id number] Potassium Chloride 10 meq 100 Lidocaine 2% Inj 10 mg In Sodium Chloride 0.9% 100 ml @ 100 mls/hr IV Q1HR OJ Rx#:[id number] cefTRIAXone 1,000 mg In 100 Sodium Chloride 0.9% 50 ml @ 100 mls/hr IVPB ONCE STA Rx#:[id number] Oral 476 Other: Voiding Method Bedside Commode Bedside Commode Bedside Commode # Voids 2 2 - Constitutional General appearance: no acute distress - EENT Eyes: EOMI, PERRLA ENT: hearing grossly normal, normal oropharynx - Neck Neck: no lymphadenopathy Thyroid: bilateral: normal size - Respiratory Respiratory: bilateral: CTA - Cardiovascular Rhythm: regular Heart sounds: normal: S1, S2 - Gastrointestinal General gastrointestinal: normal bowel sounds, soft - Integumentary Integumentary: normal - Neurologic Neurologic: CNII-XII intact - Musculoskeletal 2+ edema, right lower extremity, from ankle to groin - Psychiatric Psychiatric: A&O x's 3 Results CBC & Chem 7: 11/07/16 08:02 11/07/16 15:52 Labs: Abnormal Lab Results - Last 24 Hours (Table) 11/07/16 11/07/16 11/07/16 Range/Units 08:02 08:02 08:02 WBC 11.0 H (3.8-10.6) k/uL RBC 3.34 L (3.80-5.40) m/uL Hgb 10.9 L (11.4-16.0) gm/dL Hct 32.7 L (34.0-46.0) % RDW 21.2 H (11.5-15.5) % Neutrophils # 7.9 H (1.3-7.7) k/uL APTT 67.2 H (22.0-30.0) sec Sodium 133 L (137-145) mmol/L BUN 3 L (7-17) mg/dL Creatinine 0.45 L (0.52-1.04) mg/dL Calcium 7.7 L (8.4-10.2) mg/dL Microbiology - Last 24 Hours (Table) 11/06/16 13:20 Urine Culture - Preliminary Urine,Voided Gram Neg Bacilli Venous US: report reviewed Assessment and Plan (1) DVT (deep venous thrombosis) Narrative/Plan: The patient had her first episode of DVT, 3 months ago, which was provoked by her bowel ischemia and surgery. However the patient had presented with an SMA thrombosis, which is apparently unprovoked. The patient stopped taking the Coumadin for more than a month ago and now is presenting with a DVT on the opposite side. Presuming that this is a new event on the other side, this actually occurred about 2 months since her hospitalization. Therefore, it can actually be considered an unprovoked event. Agree with starting the patient on IV heparin. The patient can be transitioned over to Coumadin or one of the newer direct factor inhibitors for outpatient anticoagulation. Given her issues with the follow-up and compliance , Coumadin monitoring can be a problem. Therefore the direct factor inhibitors would be a better choice if they are covered by insurance. Given her history of unprovoked SMA thrombosis, as well as thrombosis in the other leg, there is a reasonable case to be made for prolonged anticoagulation as long as she tolerates treatment well. I discussed a hypercoagulable workup with the patient. She states that she did have testing done at [facility] and was told that she did have a clotting disorder. However she was not able to provide any further information. I will await those records, and review them, before ordering any additional workup to avoid duplication. As my recommendation is prolonged anticoagulation, the results of for hypercoagulable workup are unlikely to affect her management. However that may have implications in the future for her children and other family members. I will check a Doppler of the other extremity, to get a new baseline, as well as a CTA, to rule out occult PE. The studies are to get a baseline, and a positive or negative result would not affect her management Status: Acute (2) Anemia Narrative/Plan: The patient has a mild anemia with hemoglobin in the 10-11 range. In her age group, the most common causes menstrual losses. I will check an anemia workup. Status: Acute
[2016-11-08] MEDS ORDERED: predniSONE 50 MG TAB PO ONE ×2 (01:00→07:00)
[2016-11-08] MEDS: HYDROcodone/APAP 7.5-325MG 1 EACH TAB PO PRN ×2 (06:51→13:35)
[2016-11-08] MEDS ORDERED: diphenhydrAMINE 50 MG CAP PO ONE (07:00)
[2016-11-08] MEDS: FAMOTIDINE 20 MG TAB PO SCH (08:45)
[2016-11-08] MEDS: NICOTINE 14MG/24HR PATCH TRANSDERM SCH (08:46)
[2016-11-08] MEDS: RIVAROXABAN 15 MG TAB PO SCH (08:46)
[2016-11-08 08:50] LABS: Anisocytosis Moderate; Basophils % (A) 0 %; CH 31.5; CHCM 32.7; Eosinophils % (A) 0 %; HCT 33.1 % (34.0-46.0); HDW 2.66; HGB 11.1 gm/dL (11.4-16.0); Luc # (Auto) 0.04; Luc % (Auto) 0; Lymphocytes # (A) 0.5 k/uL (1.0-4.8); Lymphocytes % (A) 4 %; MCH 32.4 pg (25.0-35.0); MCHC 33.6 g/dL (31.0-37.0); MCV 96.5 fL (80.0-100.0); Macrocytosis Moderate; Mean Platelet Volume 7.1; Monocytes # (A) 0.3 k/uL (0-1.0); Monocytes % (A) 3 %; Neutrophils # (A) 11.3 k/uL (1.3-7.7); Neutrophils % (A) 92 %; RBC 3.43 m/uL (3.80-5.40); RDW 20.9 % (11.5-15.5); WBC 12.3 k/uL (3.8-10.6); WBC (Perox) 12.08
[2016-11-08 09:00] LABS: Reticulocyte % 3.1 % (0.5-2.0)
--- NOTE | 2016-11-08 09:21 | CT ---
EXAMINATION TYPE: CT angio chest DATE OF EXAM: 11/08/2016 COMPARISON: CT abdomen pelvis 08/09/2016 HISTORY: Rt leg DVT CT DLP: 164.6 mGycm Automated exposure control for dose reduction was used. CONTRAST: CTA scan of the thorax is performed with IV Contrast, patient injected with 67 mL of Omnipaque 350, p ulmonary embolism protocol. MIP images are created and reviewed. 3D reconstructed images are create d on an independent workstation and reviewed. FINDINGS: LUNGS: Paraseptal emphysematous changes are present. No evident lung mass. Centrilobular emphysema al so present at the upper lobes which is mild. Cavitary foci present in the right upper lobe laterally with extensions to the pleura, there is local pleural thickening, approximately 4 cavitary foci are p resent, largest measuring 15 mm some wall thickening present. Probable basilar atelectatic changes on the right, there is a small right pleural effusion. AORTA: Eccentric plaque present in the descending aorta similar to prior CT. MEDIASTINUM: Bilateral pulmonary emboli are present, segmental branches to the lower lobes as well as right middle lobe and left upper lobe show filling defects. Central pulmonary embolus present in the right pulmonary artery and left pulmonary artery peripherally. OTHER: Findings of fatty infiltration of the liver again noted. The previously identified embolus in the superior mesenteric artery is not included on the exam. IMPRESSION: BILATERAL PULMONARY EMBOLI COMPATIBLE WITH PATIENT'S HISTORY. SMALL RIGHT PLEURAL EFFUSION.
[2016-11-08 12:23] LABS: Anion Gap 9 mmol/L; Blood Urea Nitrogen 5 mg/dL (7-17); Calcium 8.7 mg/dL (8.4-10.2); Carbon Dioxide 22 mmol/L (22-30); Chloride 105 mmol/L (98-107); Glucose 137 mg/dL (74-99); Iron 21 ug/dL (37-170); Non-African American GFR(MDRD) >60 (>60 ml/min/1.73 sqM); Potassium 4.5 mmol/L (3.5-5.1); Sodium 136 mmol/L (137-145)
[2016-11-08 12:39] LABS: Total Iron Binding Capacity 209 ug/dL (265-497)
[2016-11-08 13:10] LABS: Vitamin B12 462 pg/mL (239-931)
[2016-11-08 14:54] VITALS: BP 100/62; PULSE 83; RESP 16; TEMP 96.9
--- NOTE | 2016-11-08 15:06 | P.DS ---
Providers Date of admission: 11/06/16 01:38 Expected date of discharge: 11/08/16 Attending physician: Hermann Junior Consults: 11/06/16 10:26 Consult Physician Routine Consulting Provider: Joshua Montgomery Consult Reason/Comments: clotting disorder Do you want consulting provider notified?: Yes Primary care physician: [facility] Course: This 36-year-old white female admitted one day ago for right lower extremity DVT. She has history of unspecified clotting disorder. She been worked up at [facility] and treated for her DVTs. She was placed on Coumadin. She's been noncompliant not taking medications several months. She is admitted placed on heparin with a positive right lower extremity DVT. 11/07/2016: Planing of pain in that the Ultram isn't helping. Hematology is seen her, the doctor dictation is pending. She is scheduled for a left lower extremity ultrasound and a CT chest. Currently she denies any shortness of breath, chest pain, chest pressure. She complains of right leg pain. She also complains of mild abdominal pain, palpitation. 11/08 she was + for multiple PE, no DVT LLE. She was stable and pain was controlled. She was cleared by hemo/onc Final DX DVT RLE unspecified clotting disorder h/o SMA clot tobaccoism suspect narcotic abuse/dependence: We'll monitor very closely, norco #30 for pain Lower extremity pain Plan - Discharge Summary New Discharge Prescriptions: New Famotidine [Pepcid] 20 mg PO DAILY #60 tab HYDROcodone/APAP 7.5-325MG [[place] 7.5-325] 1 each PO Q6H PRN #30 tab PRN Reason: Pain Nicotine 14Mg/24Hr Patch [Habitrol] 1 patch TRANSDERM DAILY #14 patch Rivaroxaban [Xarelto] 15 mg PO BID-W/MEALS #60 tab Discharge Medication List Famotidine [Pepcid] 20 mg PO DAILY #60 tab 11/08/16 [Rx] HYDROcodone/APAP 7.5-325MG [[place] 7.5-325] 1 each PO Q6H PRN #30 tab 11/08/16 [ Rx] Nicotine 14Mg/24Hr Patch [Habitrol] 1 patch TRANSDERM DAILY #14 patch 11/08/16 [ Rx] Rivaroxaban [Xarelto] 15 mg PO BID-W/MEALS #60 tab 11/08/16 [Rx] Follow up Appointment(s)/Referral(s): Hermann Junior Jr, [Primary Care Provider] - 3 Days Discharge Disposition: HOME SELF-CARE
[2016-11-10 01:28] LABS: Methylmalonic Acid 0.18 umol/L (<0.40)
== END 2016-11-08 16:57 | disposition home or self-care (01) | DRG 300 ==
LOC: EC 22:36 → 4MS4W 11-06 01:38
PROVIDERS: ADMIT Family Medicine; ATTEND Family Medicine
DX: I82.421 Acute embolism and thrombosis of right iliac vein (principal); D68.9 Coagulation defect, unspecified; I10 Essential (primary) hypertension; F32.9 Major depressive disorder, single episode, unspecified; E87.6 Hypokalemia; D64.9 Anemia, unspecified; J45.909 Unspecified asthma, uncomplicated; G47.00 Insomnia, unspecified; F43.10 Post-traumatic stress disorder, unspecified; F41.0 Panic disorder [episodic paroxysmal anxiety]; Z86.718 Personal history of other venous thrombosis and embolism; F17.200 Nicotine dependence, unspecified, uncomplicated; Z91.19 Patient's noncompliance with other medical treatment and regimen; Z88.9 Allergy status to unspecified drugs, medicaments and biological substances; Z91.041 Radiographic dye allergy status
CPT/HCPCS: 71275; 80048; 80053; 81001; 82607; 82728; 82747; 83540; 83550; 83735; 83921; 84132; 85025; 85045; 85610; 85730; 87077; 87086; 87186

== ENCOUNTER 2016-12-19 11:55 | Emergency (ER) | payer MEDICARE, OTHER ==
[2016-12-19] MEDS ORDERED: MORPHINE SULFATE 4 MG/ML SYRINGE IV STA (12:38)
[2016-12-19] MEDS ORDERED: SODIUM CHLORIDE 0.9% 1,000 ML IV STA (12:38)
[2016-12-19 13:07] LABS: Anisocytosis Moderate; Basophils % (A) 1 %; CH 33.2; Eosinophils # (A) 0.2 k/uL (0-0.7); Eosinophils % (A) 4 %; HCT 39.4 % (34.0-46.0); HGB 13.3 gm/dL (11.4-16.0); Luc # (Auto) 0.04; Luc % (Auto) 1; Lymphocytes # (A) 1.3 k/uL (1.0-4.8); Lymphocytes % (A) 28 %; MCHC 33.7 g/dL (31.0-37.0); MCV 100.8 fL (80.0-100.0); Macrocytosis Moderate; Mean Platelet Volume 7.2; Monocytes # (A) 0.1 k/uL (0-1.0); Monocytes % (A) 2 %; Neutrophils # (A) 2.9 k/uL (1.3-7.7); Neutrophils % (A) 64 %; RBC 3.91 m/uL (3.80-5.40); RDW 20.9 % (11.5-15.5); WBC 4.5 k/uL (3.8-10.6); WBC (Perox) 4.52
[2016-12-19 13:09] LABS: ALT 41 U/L (9-52); AST 40 U/L (14-36); Alkaline Phosphatase 128 U/L (38-126); Amylase 48 U/L (30-110); Anion Gap 16 mmol/L; Blood Urea Nitrogen 4 mg/dL (7-17); Calcium 8.7 mg/dL (8.4-10.2); Carbon Dioxide 23 mmol/L (22-30); Chloride 105 mmol/L (98-107); Glucose 80 mg/dL (74-99); Magnesium 1.6 mg/dL (1.6-2.3); Non-African American GFR(MDRD) >60 (>60 ml/min/1.73 sqM); Potassium 3.2 mmol/L (3.5-5.1); Sodium 144 mmol/L (137-145); Total Bilirubin 0.8 mg/dL (0.2-1.3)
--- NOTE | 2016-12-19 13:09 | ED ---
Abdominal Pain HPI - General Chief Complaint: Abdominal Pain Stated Complaint: chest and abdominal pain Time Seen by Provider: 12/19/16 12:22 Source: patient, RN notes reviewed, old records reviewed Mode of arrival: ambulatory Limitations: no limitations - History of Present Illness Initial Comments: This is a 36-year-old male presents emergency Department chief complaint of shortness of breath, chest pain and abdominal pain for the past 3 days she has history of Right sided PE, IV drug use, DVT. 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 Patient reports that she is on Xarelto has been taking faithfully. Patient states that over the past 3 days she's had some fevers and chills. She states it feels just like a dull ache in her chest. Patient reports that her abdominal pain seems to come and go. She states she's had normal bowel movements, denies any diarrhea. - Related Data Home Medications Medication Instructions Recorded Confirmed Rivaroxaban [Xarelto] 15 mg PO BID 12/19/16 12/19/16 Previous Rx's Medication Instructions Recorded Famotidine [Pepcid] 20 mg PO DAILY #60 tab 11/08/16 Acetaminophen-Codeine 300-30mg 1 tab PO Q4H PRN #12 tablet 12/19/16 [Tylenol #3] Ciprofloxacin HCl [Cipro] 500 mg PO Q12HR 10 Days 12/19/16 metroNIDAZOLE [Flagyl] 500 mg PO QID 10 Days 12/19/16 Allergies Allergy/AdvReac Type Severity Reaction Status Date / Time house dust Allergy Itching Verified 12/19/16 14:33 Iodinated Contrast- Oral and Allergy Anaphylaxis Verified 12/19/16 14:33 IV Dye [Iodinated Contrast Media - IV Dye] Review of Systems ROS Statement: Those systems with pertinent positive or pertinent negative responses have been documented in the HPI. ROS Other: All systems not noted in ROS Statement are negative. Past Medical History Past Medical History: Asthma, Deep Vein Thrombosis (DVT), GI Bleed, Hypertension Additional Past Medical History / Comment(s): CARPAL TUNNEL. CLOTTING DISORDER History of Any Multi-Drug Resistant Organisms: None Reported Past Surgical History: Section Additional Past Surgical History / Comment(s): WISDOM TEETH EXTRACTION, D&C, 3 SECTIONS, TUBES TIED, BLOOD CLOT REMOVED FROM ABDOMEN Additional Past Anesthesia/Blood Transfusion Reaction / Comment(s): PT STATES TAKES A WHILE TO WAKE UP Past Psychological History: Anxiety, Depression, Panic Disorder, PTSD Smoking Status: Current every day smoker Past Alcohol Use History: Occasional Past Drug Use History: Opiates - Past Family History Mother Additional Family Medical History / Comment(s): LUPUS General Exam - General Exam Comments Initial Comments: Physical is a 36-year-old female, patient appears to be short of breath. Limitations: no limitations General appearance: alert, in no apparent distress Head exam: Present: atraumatic, normocephalic, normal inspection Eye exam: Present: normal appearance, PERRL, EOMI. Absent: scleral icterus, conjunctival injection, periorbital swelling ENT exam: Present: normal exam, mucous membranes moist Neck exam: Present: normal inspection. Absent: tenderness, meningismus, lymphadenopathy Respiratory exam: Present: normal lung sounds bilaterally. Absent: respiratory distress, wheezes, rales, rhonchi, stridor Cardiovascular Exam: Present: regular rate, normal rhythm, normal heart sounds. Absent: systolic murmur, diastolic murmur, rubs, gallop, clicks GI/Abdominal exam: Present: soft, tenderness (Diffuse abdominal tenderness.), normal bowel sounds. Absent: distended, guarding, rebound, rigid Extremities exam: Present: normal inspection, full ROM, normal capillary refill. Absent: tenderness, pedal edema, joint swelling, calf tenderness Back exam: Present: normal inspection Neurological exam: Present: alert, oriented X3, CN II-XII intact Psychiatric exam: Present: normal affect, normal mood Skin exam: Present: warm, dry, intact, normal color. Absent: rash Course Vital Signs 12/19/16 12/19/16 12:15 15:13 Temperature 99.2 F Pulse Rate 95 86 Respiratory 17 18 Rate Blood Pressure 134/90 138/86 O2 Sat by Pulse 100 100 Oximetry Medical Decision Making - Medical Decision Making Is a 36-year-old female with multiple comorbidities including clotting disorder. She is on several toe currently and has been taking it regularly. Patient arrived emergency department short of breath, complaining of chest pain and abdominal pain for 3 days. Patient's EKG was reviewed and normal. Cardiac enzymes are also normal. Chest x-ray showed evidence of right lower lung scarring which appears to be chronic. Given patient's significant medical history and surgical history where a SMA thrombus was removed, CT abdomen and pelvis and chest was ordered. Patient did have an elevated d-dimer. CT of the chest showed evidence of no acute thrombus, but a chronic right lower lung arterial thrombus which is not totally occluding. Patient CT abdomen showed evidence of colitis. Discussed with Dr. Esteban. - Lab Data Result diagrams: 12/19/16 12:44 12/19/16 12:44 Lab Results 12/19/16 12/19/16 12/19/16 Range/Units 12:44 12:44 12:44 WBC (3.8-10.6) k/uL RBC (3.80-5.40) m/uL Hgb (11.4-16.0) gm/dL Hct (34.0-46.0) % MCV (80.0-100.0) fL MCH (25.0-35.0) pg MCHC (31.0-37.0) g/dL RDW (11.5-15.5) % Plt Count (150-450) k/uL Neutrophils % % Lymphocytes % % Monocytes % % Eosinophils % % Basophils % % Neutrophils # (1.3-7.7) k/uL Lymphocytes # (1.0-4.8) k/uL Monocytes # (0-1.0) k/uL Eosinophils # (0-0.7) k/uL Basophils # (0-0.2) k/uL Anisocytosis Macrocytosis PT 14.7 H (9.0-12.0) sec INR 1.5 H (<1.2) APTT 35.4 H (22.0-30.0) sec D-Dimer 1.03 H (<0.60) mg/L FEU Sodium 144 (137-145) mmol/L Potassium 3.2 L (3.5-5.1) mmol/L Chloride 105 (98-107) mmol/L Carbon Dioxide 23 (22-30) mmol/L Anion Gap 16 mmol/L BUN 4 L (7-17) mg/dL Creatinine 0.60 (0.52-1.04) mg/dL Est GFR (MDRD) Af Amer >60 (>60 ml/min/1.73 sqM) Est GFR (MDRD) Non-Af >60 (>60 ml/min/1.73 sqM) Glucose 80 (74-99) mg/dL Plasma Lactic Acid Mateo 1.8 (0.7-2.0) mmol/L Calcium 8.7 (8.4-10.2) mg/dL Magnesium 1.6 (1.6-2.3) mg/dL Total Bilirubin 0.8 (0.2-1.3) mg/dL AST 40 H (14-36) U/L ALT 41 (9-52) U/L Alkaline Phosphatase 128 H (38-126) U/L Total Creatine Kinase (30-135) U/L CK-MB (CK-2) (0.0-2.4) ng/mL CK-MB (CK-2) Rel Index Troponin I (0.000-0.034) ng/mL NT-Pro-B Natriuret Pep pg/mL Total Protein 7.0 (6.3-8.2) g/dL Albumin 3.7 (3.5-5.0) g/dL Amylase 48 (30-110) U/L Lipase 112 (23-300) U/L Stool Occult Blood (Negative) 12/19/16 12/19/16 12/19/16 Range/Units 12:44 12:44 12:44 WBC 4.5 (3.8-10.6) k/uL RBC 3.91 (3.80-5.40) m/uL Hgb 13.3 (11.4-16.0) gm/dL Hct 39.4 (34.0-46.0) % MCV 100.8 H (80.0-100.0) fL MCH 34.0 (25.0-35.0) pg MCHC 33.7 (31.0-37.0) g/dL RDW 20.9 H (11.5-15.5) % Plt Count 230 (150-450) k/uL Neutrophils % 64 % Lymphocytes % 28 % Monocytes % 2 % Eosinophils % 4 % Basophils % 1 % Neutrophils # 2.9 (1.3-7.7) k/uL Lymphocytes # 1.3 (1.0-4.8) k/uL Monocytes # 0.1 (0-1.0) k/uL Eosinophils # 0.2 (0-0.7) k/uL Basophils # 0.0 (0-0.2) k/uL Anisocytosis Moderate Macrocytosis Moderate PT (9.0-12.0) sec INR (<1.2) APTT (22.0-30.0) sec D-Dimer (<0.60) mg/L FEU Sodium (137-145) mmol/L Potassium (3.5-5.1) mmol/L Chloride (98-107) mmol/L Carbon Dioxide (22-30) mmol/L Anion Gap mmol/L BUN (7-17) mg/dL Creatinine (0.52-1.04) mg/dL Est GFR (MDRD) Af Amer (>60 ml/min/1.73 sqM) Est GFR (MDRD) Non-Af (>60 ml/min/1.73 sqM) Glucose (74-99) mg/dL Plasma Lactic Acid Mateo (0.7-2.0) mmol/L Calcium (8.4-10.2) mg/dL Magnesium (1.6-2.3) mg/dL Total Bilirubin (0.2-1.3) mg/dL AST (14-36) U/L ALT (9-52) U/L Alkaline Phosphatase (38-126) U/L Total Creatine Kinase 22 L (30-135) U/L CK-MB (CK-2) <0.2 (0.0-2.4) ng/mL CK-MB (CK-2) Rel Index Troponin I <0.012 (0.000-0.034) ng/mL NT-Pro-B Natriuret Pep 25 pg/mL Total Protein (6.3-8.2) g/dL Albumin (3.5-5.0) g/dL Amylase (30-110) U/L Lipase (23-300) U/L Stool Occult Blood (Negative) 12/19/16 Range/Units 16:02 WBC (3.8-10.6) k/uL RBC (3.80-5.40) m/uL Hgb (11.4-16.0) gm/dL Hct (34.0-46.0) % MCV (80.0-100.0) fL MCH (25.0-35.0) pg MCHC (31.0-37.0) g/dL RDW (11.5-15.5) % Plt Count (150-450) k/uL Neutrophils % % Lymphocytes % % Monocytes % % Eosinophils % % Basophils % % Neutrophils # (1.3-7.7) k/uL Lymphocytes # (1.0-4.8) k/uL Monocytes # (0-1.0) k/uL Eosinophils # (0-0.7) k/uL Basophils # (0-0.2) k/uL Anisocytosis Macrocytosis PT (9.0-12.0) sec INR (<1.2) APTT (22.0-30.0) sec D-Dimer (<0.60) mg/L FEU Sodium (137-145) mmol/L Potassium (3.5-5.1) mmol/L Chloride (98-107) mmol/L Carbon Dioxide (22-30) mmol/L Anion Gap mmol/L BUN (7-17) mg/dL Creatinine (0.52-1.04) mg/dL Est GFR (MDRD) Af Amer (>60 ml/min/1.73 sqM) Est GFR (MDRD) Non-Af (>60 ml/min/1.73 sqM) Glucose (74-99) mg/dL Plasma Lactic Acid Mateo (0.7-2.0) mmol/L Calcium (8.4-10.2) mg/dL Magnesium (1.6-2.3) mg/dL Total Bilirubin (0.2-1.3) mg/dL AST (14-36) U/L ALT (9-52) U/L Alkaline Phosphatase (38-126) U/L Total Creatine Kinase (30-135) U/L CK-MB (CK-2) (0.0-2.4) ng/mL CK-MB (CK-2) Rel Index Troponin I (0.000-0.034) ng/mL NT-Pro-B Natriuret Pep pg/mL Total Protein (6.3-8.2) g/dL Albumin (3.5-5.0) g/dL Amylase (30-110) U/L Lipase (23-300) U/L Stool Occult Blood Positive H (Negative) 12/19/16 14:02 EKG shows sinus tachycardia. Possible left atrial enlargement. Ventricularly of 102 bpm. MT interval 122 ms. QRS duration 80 ms. QT QTC 378/4 and 90 ms. Noelevation or T-wave inversion. No evidence of atrial or intraventricular arrhythmia. - Radiology Data Radiology results: report reviewed Suspected scarring of right midlung. Follow-up chest x-ray 3 months is recommended. Disposition Clinical Impression: Colitis, Chronic pulmonary embolism Disposition: HOME SELF-CARE Condition: Good Instructions: Colitis (ED) Additional Instructions: Advised to rest, increase fluids. Follow-up with Dr. Evelyn Smith tomorrow morning. Return to the emergency department if any alarming signs or symptoms occur. Prescriptions: Acetaminophen-Codeine 300-30mg [Tylenol #3] 1 tab PO Q4H PRN #12 tablet PRN Reason: Pain Ciprofloxacin HCl [Cipro] 500 mg PO Q12HR 10 Days metroNIDAZOLE [Flagyl] 500 mg PO QID 10 Days Referrals: Hermann Junior Jr, DO [Primary Care Provider] - 1-2 days Time of Disposition: 16:21
[2016-12-19 13:13] LABS: INR 1.5 (<1.2); Partial Thromboplastin Time 35.4 sec (22.0-30.0); Prothrombin Time 14.7 sec (9.0-12.0)
[2016-12-19 13:18] LABS: Creatine Kinase 22 U/L (30-135)
--- NOTE | 2016-12-19 13:22 | XR ---
EXAMINATION TYPE: XR chest 2V DATE OF EXAM: 12/19/2016 COMPARISON: 11/08/2016 CTA chest INDICATION: Chest pain, history of PE TECHNIQUE: Frontal and lateral views of the chest are obtained. FINDINGS: The heart size is normal. The pulmonary vasculature is normal. The lungs are clear. May be some minimal scarring within the mid to upper right peripheral lung fiel d. This may correlate with the findings on the CTA. Follow-ups chest x-ray in 3 months is recommended . IMPRESSION: 1. Suspected scarring right midlung. Follow-up chest x-ray 3 months is recommended.
[2016-12-19 13:31] LABS: Creatine Kinase MB <0.2 ng/mL (0.0-2.4); Troponin I <0.012 ng/mL (0.000-0.034)
[2016-12-19] MEDS ORDERED: diphenhydrAMINE 50 MG/ML 1 ML VIAL IVP STA (13:53)
[2016-12-19] MEDS ORDERED: RX INFO: IV CONTRAST WAS GIVEN 1 EACH MISC MISCELLANE PRN (13:53)
[2016-12-19] MEDS ORDERED: FAMOTIDINE 20 MG/2 ML VIAL IV STA (13:53)
[2016-12-19] MEDS ORDERED: methylPREDNISolone SOD SUCCI 125 MG/2 ML VIAL IV STA (13:53)
[2016-12-19] MEDS ORDERED: SODIUM CHLORIDE 0.9% 1,000 ML IV ONE (15:09)
--- NOTE | 2016-12-19 15:30 | CT ---
CT CHEST FOR PULMONARY EMBOLISM. EXAMINATION TYPE: CT chest angio for PE DATE OF EXAM: 12/19/2016 INDICATION: Chest and Abdominal pain with known DVTs. CT DLP: 189.7 mGycm, Automated exposure control for dose reduction was used. CONTRAST: Patient injected with 100 mL of Omnipaque 350. COMPARISON: NONE TECHNIQUE: CT of the chest is performed on a spiral scan at 2 mm thick sections. Study is performed with intravenous contrast timed for evaluation for pulmonary embolism. This will limit additional po rtions of the evaluation. 3-D MIP images reconstructed by the technologist are reviewed on the compu ter in the coronal and sagittal planes. FINDINGS: There is a partial filling defect extending through the right main pulmonary artery to the right lowe r lobe pulmonary artery. Contrast passes beyond this area appears may be chronic thrombus. Acute obst ructing thrombus is not identified. Small amount of thrombus is identified in the left main pulmonary artery between the lingula and lower lobe without complete obstruction. No mediastinal or hilar adenopathy enlarged by CT criteria is evident. The ascending aorta diameter at the level of the main pulmonary artery is 3.8 cm. The main pulmonary artery diameter at the bifur cation is 2.9 cm. Scarring is at the apices There is an infiltrate within the right peripheral lung. Pneumatocele is present. Some mild parasepta l emphysematous changes are in the posterior lateral right lung base. Limited CT sections are obtained through the upper abdomen which are unremarkable. IMPRESSIONS: 1. Nonobstructing thrombus within the left distal main and right main to right lower lobe pulmonary a rtery is present. These may be chronic. Report was called to the emergency room PA by Dr. Augustine by telephone at the time of interpretation.
--- NOTE | 2016-12-19 15:35 | CT ---
EXAMINATION TYPE: CT abdomen pelvis w con DATE OF EXAM: 12/19/2016 COMPARISON: 08/09/2016 INDICATION: Chest and Abdominal pain with known DVTs. DLP: 1409.3 mGycm, Automated exposure control for dose reduction was used. CONTRAST: 100 mL of Omnipaque 350. Study performed without Oral Contrast TECHNIQUE: Axial images were obtained from above the diaphragm to the pubic rami in the axial plane a t 5 mm thick sections. Reconstructed images are reviewed on the computer in the coronal plane. FINDINGS: Limited CT sections are obtained the lung bases. The lung bases are clear. CT ABDOMEN: Liver: There is moderate fatty infiltration to the liver. Spleen: Normal Pancreas: Normal Adrenal glands: The adrenal glands are normal. Gallbladder: Normal Kidneys: No masses are evident. No hydronephrosis is present. No cysts are present. Delayed images were obtained through the kidneys, which remain unremarkable. Aorta: Vascular calcification is within the aorta. Inferior vena cava: Normal. CT PELVIS: There is thickening of the ascending colon wall. This extends to the proximal descending colon. Corre late for colitis. Inflammatory changes are not adjacent. Loops of bowel are nondistended with oral co ntrast limiting their evaluation. Appendix: Normal as visualized. Urinary bladder: Normal. Genitourinary structures: Uterus and adnexal regions appear within normal limits. Osseous structures: No suspicious lytic or sclerotic lesions. IMPRESSIONS: 1. Thickened ascending and transverse colon wall suspicious for colitis. Clinical correlation is rec ommended. 2. Findings appear similar to 08/09/2016, recurrent colitis should be suspected.
[2016-12-19] MEDS ORDERED: MORPHINE SULFATE 4 MG/ML SYRINGE IVP STA (15:49)
[2016-12-19] MEDS ORDERED: metroNIDAZOLE 500 MG TAB PO STA (16:20)
[2016-12-19] MEDS ORDERED: CIPROFLOXACIN HCL 500 MG TAB PO STA (16:20)
[2016-12-19 16:49] VITALS: BP 142/89; PULSE 90; RESP 20; TEMP 97.8
== END 2016-12-19 16:45 | disposition home or self-care (01) ==
LOC: EC 11:55
DX: K52.9 Noninfective gastroenteritis and colitis, unspecified (principal); I27.82 Chronic pulmonary embolism; R07.9 Chest pain, unspecified; F17.200 Nicotine dependence, unspecified, uncomplicated; Z86.718 Personal history of other venous thrombosis and embolism; Z91.09 Other allergy status, other than to drugs and biological substances; Z91.041 Radiographic dye allergy status; Z79.01 Long term (current) use of anticoagulants
CPT/HCPCS: 36415; 93005; 85379; 83880; 80053; 82150; 82550; 82553; 83605; 83690; 83735; 84484; 85025; 85610; 85730; 82272; 87040; 71020; 71275; 74177; 99285; 96374; 96375 ×3; 96376; 96361 ×3; J2270; J1200; J2930; Q9967

== ENCOUNTER → 2017-03-15 | Outpatient (CLI) | payer MEDICARE, OTHER ==
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
== END | disposition home or self-care (01) ==
LOC: RADCTMAIN 16:07
PROVIDERS: ATTEND Psychiatry & Neurology Neurology
DX: Z09 Encounter for follow-up examination after completed treatment for conditions other than malignant neoplasm (principal); H70.001 Acute mastoiditis without complications, right ear; Z86.73 Personal history of transient ischemic attack (TIA), and cerebral infarction without residual deficits
CPT/HCPCS: 70450